=== PATIENT | female | born 1965 | race African-American/Black ===

== ENCOUNTER 2025-08-24 17:13 | Emergency (ER) | payer OTHER ==
[~2025-08-24] VITALS: Ht 154.9 cm; Wt 88.0 kg
[2025-08-24] MEDS ORDERED: PREDNISONE 20 MG TAB PO STA (18:11)
[2025-08-24] MEDS ORDERED: DIPHENHYDRAMINE HCL INJ 50 MG/ML VIAL IV ONE (18:15)
[2025-08-24] MEDS: FAMOTIDINE 20 MG TAB PO ONE (18:35)
[2025-08-24 20:40] VITALS: PULSE 76; RESP 16; TEMP 98.2; O2SAT 100
[2025-08-24] MEDS ORDERED: PANTOPRAZOLE SO40 MG PO (20:51)
== END 2025-08-24 21:02 | disposition home or self-care (01) ==
LOC: ER 17:32
DX: R60.9 Edema, unspecified (principal); T43.295A Adverse effect of other antidepressants, initial encounter; F41.9 Anxiety disorder, unspecified; F32.A Depression, unspecified
CPT/HCPCS: 99283

== ENCOUNTER 2025-08-28 05:44 | Emergency (ER) | payer OTHER ==
[~2025-08-28] VITALS: Ht 154.9 cm; Wt 88.0 kg
[~2025-08-28 05:44] MED LIST: PANTOPRAZOLE SO40 MG PO
[2025-08-28 05:45] VITALS: TEMP 97.9
[2025-08-28] MEDS ORDERED: BELLADONNA ALK/PHENOBARBITAL 5 ML UDC ONE (06:35)
[2025-08-28 06:41] LABS: BASOPHILS % 0.3 % (0.0-1.0); EOSINOPHILS % 1.4 % (0.0-6.0); LYMPHOCYTES % 36.3 % (18.0-39.1); MONOCYTES % 10.8 % (4.4-11.3); NEUTROPHILS % 49.9 % (38.7-80.0); RED CELL DISTRIBUTION WIDTH 13.3 % (11.7-14.4)
[2025-08-28] MEDS: BELLADONNA ALK/PHENOBARBITAL 5 ML UDC PO STA (06:48)
[2025-08-28] MEDS: LIDOCAINE VISC 2% SOLN 15 ML UDC PO ONE (06:49)
[2025-08-28] MEDS: MAGNESIUM/ALUMINUM/SIMETHICONE 30 ML UDC PO ONE (06:50)
[2025-08-28 07:24] LABS: EST GLOMERULAR FILTRATION RATE 102 ML/MIN (>=60)
[2025-08-28 07:30] VITALS: PULSE 65; RESP 16
[2025-08-28 07:42] VITALS: BP 125/82; PULSE 87; RESP 18; O2SAT 100
== END 2025-08-28 07:49 | disposition home or self-care (01) ==
LOC: ER 06:16
DX: K21.9 Gastro-esophageal reflux disease without esophagitis (principal); I10 Essential (primary) hypertension; E11.65 Type 2 diabetes mellitus with hyperglycemia; E78.5 Hyperlipidemia, unspecified; J45.909 Unspecified asthma, uncomplicated; F41.9 Anxiety disorder, unspecified; F32.A Depression, unspecified; Z86.73 Personal history of transient ischemic attack (TIA), and cerebral infarction without residual deficits; Z85.3 Personal history of malignant neoplasm of breast; Z87.442 Personal history of urinary calculi
CPT/HCPCS: 36415; 71045; 80053; 83690; 84484; 85025; 93005; 99283; J2470